=== PATIENT | female | born 1945 | race Caucasian/White ===

== ENCOUNTER 2022-07-17 15:56 | Observation (INO) | payer MEDICARE ==
[2022-07-17 16:27] VITALS: BMI 27.6
[2022-07-17] MEDS ORDERED: Acetaminophen 325 MG TAB PO PRN (22:19)
[2022-07-17] MEDS ORDERED: Ondansetron ODT 4 MG TAB PO PRN (22:19)
[2022-07-17] MEDS ORDERED: hydrALAZINE 20 MG/ML VIAL SLOW IVP PRN (22:20)
[2022-07-18 06:13] LABS: #Monocytes 0.8 10x3/uL (0.0-1.1); #Neutrophils 4.7 10x3/uL (1.5-8.4); %Basophils 0.4 % (0.0-2.0); %Lymphocytes 20.5 % (18.0-47.0); %Neutrophils 67.5 % (40.0-75.0); Hemoglobin 13.7 g/dL (12.0-15.5); Mean Corpuscular Hemoglobin 31.2 pg (27.0-33.0); Mean Corpuscular Volume 91.8 fl (81.6-98.3); Mean Platelet Volume 10.7 fl (7.4-10.4); Platelet Count 264 10x3/uL (150-450); RBC Distribution Width 12.8 % (11.5-14.5); Red Blood Cell (RBC) Count 4.39 10x6/uL (3.90-5.03)
[2022-07-18 06:38] LABS: ALT (SGPT) 17 U/L (8-55); AST (SGOT) 15 U/L (5-34); Albumin 3.9 g/dL (3.4-4.8); Alkaline Phosphatase 75 U/L (40-110); Anion Gap 11 mmol/L (10-20); BUN (Urea Nitrogen) 18 mg/dL (9.8-20.1); Bilirubin, Total 0.9 mg/dL (0.2-1.2); Calc. Creatinine Clearance 69 mL/min (70-130); Carbon Dioxide 25 mmol/L (23-31); Cardiac Risk 3.4 (Less than 4.5); Chloride 108 mmol/L (98-107); Cholesterol 193 mg/dl (< 200 Desired); Estimated GFR 85; Globulin 2.7 g/dL (2.4-3.5); Glucose 127 mg/dL (83-110); HDL Cholesterol 56 mg/dL (>60 Neg Risk); LDL Cholesterol, Calculated 124 mg/dL; Magnesium 2.2 mg/dL (1.6-2.6); Potassium 4.1 mmol/L (3.5-5.1); Protein, Total 6.6 g/dL (5.8-8.1); Sodium 140 mmol/L (136-145); Triglycerides 65 mg/dL (Less than 150)
[2022-07-18] MEDS ORDERED: Enoxaparin Sodium 40 MG/0.4 ML SYRINGE SC SCH (09:00)
[2022-07-18] MEDS ORDERED: Aspirin 81 mg Enteric Coated Tablet PO SCH (09:00)
[2022-07-18] MEDS ORDERED: Losartan Potassium 50 MG TAB PO SCH (13:00)
[2022-07-18 15:41] VITALS: BP 148/78; TEMP 98.7
[2022-07-18] MEDS ORDERED: Atorvastatin Calcium 40 MG TAB PO SCH (21:00)
[2022-07-19] MEDS ORDERED: Losartan Potassium 50 MG TAB PO SCH (09:00)
== END 2022-07-18 17:44 | disposition home or self-care (01) ==
LOC: CSHTELE 15:56 → INTOOBSV 15:56
PROVIDERS: ADMIT Family Medicine; ATTEND Family Medicine
DX: G45.9 Transient cerebral ischemic attack, unspecified (principal); R26.9 Unspecified abnormalities of gait and mobility; R29.898 Other symptoms and signs involving the musculoskeletal system; R29.700 NIHSS score 0; I42.1 Obstructive hypertrophic cardiomyopathy; I25.10 Atherosclerotic heart disease of native coronary artery without angina pectoris; I49.5 Sick sinus syndrome; I10 Essential (primary) hypertension; E78.5 Hyperlipidemia, unspecified; I08.0 Rheumatic disorders of both mitral and aortic valves; Z79.82 Long term (current) use of aspirin; Z79.899 Other long term (current) drug therapy; Z20.822 Contact with and (suspected) exposure to COVID-19; Z98.51 Tubal ligation status; Z95.0 Presence of cardiac pacemaker; Z95.2 Presence of prosthetic heart valve
CPT/HCPCS: 70450; 80061; 83036; 83735; 93306; 93880; 94760; 96372; 97116; G0378 ×2; U0003; U0005; 80053; 84443; 85025; J1650

== ENCOUNTER 2025-07-12 09:02 | Outpatient (CLI) | payer MEDICARE | END 2025-07-12 09:03 | disposition home or self-care (01) | LOC: CSHCP 09:02 | PROVIDERS: ATTEND Internal Medicine | DX: R06.09 Other forms of dyspnea (principal); J44.9 Chronic obstructive pulmonary disease, unspecified | CPT/HCPCS: 94060; 94618; 94664; 94726; 94729 ==